=== PATIENT | female | born 1960 | race African-American/Black ===

== ENCOUNTER 2020-08-23 09:59 | Emergency (ER) | payer OTHER ==
[~2020-08-23] VITALS: Ht 167.6 cm; Wt 63.5 kg
[2020-08-23 10:01] VITALS: BP 169/85
[2020-08-23] MEDS ORDERED: CYCLOBENZAPRINE5 MG PO ×2 (10:20→11:06)
[2020-08-23] MEDS ORDERED: IBUPROFEN 600600 M1 PO ×2 (10:20→11:06)
== END 2020-08-23 11:10 | disposition home or self-care (01) ==
LOC: ER 09:59
DX: S16.1XXA Strain of muscle, fascia and tendon at neck level, initial encounter (principal); M54.5 Low back pain; I10 Essential (primary) hypertension; E11.9 Type 2 diabetes mellitus without complications; E78.00 Pure hypercholesterolemia, unspecified; V43.62XA Car passenger injured in collision with other type car in traffic accident, initial encounter; Y93.89 Activity, other specified; Y92.488 Other paved roadways as the place of occurrence of the external cause; Y99.8 Other external cause status